=== PATIENT | male | born 1995 | race African-American/Black ===

== ENCOUNTER 2024-03-23 21:57 | Emergency (ER) | payer OTHER, SELFPAY ==
[2024-03-24] MEDS ORDERED: Lidocaine Viscous Sol 2% 15 ml UD Cup ONE (01:26)
[2024-03-24] MEDS ORDERED: Mag-Al 1200 mg/1200 mg/30 ML UDCUP ONE (01:26)
== END 2024-03-24 03:01 | disposition home or self-care (01) ==
LOC: CSHERS 21:57
DX: K21.9 Gastro-esophageal reflux disease without esophagitis (principal); Z79.899 Other long term (current) drug therapy
CPT/HCPCS: 93005; 99284

== ENCOUNTER 2024-10-02 13:02 | Outpatient (CLI) | payer OTHER | END 2024-10-02 13:03 | disposition home or self-care (01) | LOC: CSHCT 13:02 | PROVIDERS: ATTEND Otolaryngology Plastic Surgery within the Head & Neck | DX: R09.81 Nasal congestion (principal); J32.1 Chronic frontal sinusitis; J32.2 Chronic ethmoidal sinusitis ==

== ENCOUNTER 2024-11-12 13:20 | Emergency (ER) | payer OTHER ==
[2024-11-12] MEDS ORDERED: Metoclopramide HCl 10 MG (2 mL) VIAL ONE (13:44)
[2024-11-12] MEDS ORDERED: Dexamethasone 10 MG/ML VIAL ONE (13:44)
[2024-11-12] MEDS ORDERED: Ketorolac Tromethamine 30 MG (1 mL) VIAL ONE (13:44)
== END 2024-11-12 15:20 | disposition home or self-care (01) ==
LOC: CSHERS 13:20
DX: R51.9 Headache, unspecified (principal)
CPT/HCPCS: 96365; 96375; J1100; J1885; J2765